=== PATIENT | female | born 1955 | race Caucasian/White ===

== ENCOUNTER → 2016-09-06 | Outpatient (CLI) | payer BC ==
[2014-10-02 21:02] VITALS: BP 134/76
[2016-09-06 09:47] LABS: ALANINE AMINOTRANSFERASE 33 Units/L (12-78); ALKALINE PHOSPHATASE 73 Units/L (46-116); ASPARTATE AMINO TRANSFERASE 25 Units/L (15-37); BLOOD UREA NITROGEN 19 mg/dL (7-18); CALCIUM 9.3 mg/dL (8.5-10.1); CARBON DIOXIDE 33.4 mmol/L (21-32); CHLORIDE 100 mmol/L (98-107); CHOL/HDL RATIO 2.9 (0.0-5.0); CHOLESTEROL 141 mg/dL (0-200); CREATININE 0.79 mg/dL (0.55-1.02); GLUCOSE 95 mg/dL (65-99); HDL CHOLESTEROL 48 mg/dL (40-60); SODIUM 139 mmol/L (136-145); TOTAL PROTEIN 7.8 g/dL (6.4-8.2); TRIGLYCERIDES 74 mg/dL (0-150); TSH (3RD GENERATION) 0.392 uIU/mL (0.358-3.74); eGFR BLACK RACES > 60 (>60); eGFR NON BLACK RACES > 60 (>60)
== END ==
LOC: LAB 09:04
PROVIDERS: ATTEND Internal Medicine Endocrinology, Diabetes & Metabolism
DX: E11.9 Type 2 diabetes mellitus without complications (principal); E78.4 Other hyperlipidemia; I10 Essential (primary) hypertension
CPT/HCPCS: 36415; 80053; 80061; 84443

== ENCOUNTER 2017-04-02 13:30 | Inpatient (IN) | payer BC ==
[2017-04-02 13:34] VITALS: BMI 24.3
--- NOTE | 2017-04-02 13:48 | ED.ABDFE ---
HPI - Time seen Time seen: 16:15 - PCP Primary Care Physician: HOLLY - HPI Comment HPI Comment: PAIN STARTED LAST NIGHT. GETTING WORSE. WITH NAUSEA AND VOMITING. SIMILAR EPISODE ONE WEEK AGO AND RESOLVE SPONTANOUSLY. NO FEVER. - Complaint Chief Complaint Doctors Comments: LUQ ABDOMINAL PAIN Chief Complaint:: PT STATES SHE HAS HAD PAIN SINCE LAST NIGHT IN HER UPPER LEFT QUADRANT. - Nurses notes reviewed Nurses Notes Review: Yes - Source History Provided: Patient - Mode of arrival Mode of Arrival: Ambulatory - Timing Onset of Chief Complaint: 04/01/17 Came on: Suddenly - Duration Duration: Intermittent Duration: Days - Location Location: LUQ - Severity Severity: Moderate - Quality Quality: Cramping, Sharp - Context Onset: Suddenly History of: None - Modifying Worsening Factors: Nothing Improving Factors: Nothing - Associated signs and symptoms Associated Signs and Symptoms: Nausea, Vomiting PMH - PMH Past Medical History: Yes Past Medical History: [place], Coronary Artery Disease, Hypertension, Dyslipidemia, Diabetes, Anxiety Past Surgical History: Yes Surgical History: Ortho Surgery, Weight Loss Surgery Past Surgical History Comment: BACK SURGERY - Family History History of Family Medical Conditions: Yes Family Medical History: Diabetes Mellitus, Heart Failure - Social History Alcohol Use: None Do you use any recreational Drugs:: No Lives With: Spouse Lives Where: Home - infectious screening In the last 2 months have you had wt loss of >10#?: NO Have you had fever, night sweats or hemotysis?: No Have you traveled outside the country in the last 6 months?: No Isolation: Standard ROS - Review of Systems Constitutional: No Symptoms Reported Eyes: No Symptoms Reported ENTM: No Symptoms Reported Respiratoy: No Symptoms Reported Cardiovascular: No Symptoms Reported Gastrointestinal/Abdominal: Abdominal Pain, Nausea, Vomiting Genitourinary: No Symptoms Reported Neurological: No Symptoms Reported Musculoskeletal: No Symptoms Reported Integumentary: No Symptoms Reported Hematologic/Lymphatic: No Symptoms Reported Endocrine: No Symptoms Reported All Other Systems: Reviewed and Negative PE - Vital Signs Vitals: Temperature 98.8 F Pulse Rate 102 Respiratory Rate 20 Blood Pressure [Right Arm] 134/76 Blood Pressure 141/73 O2 Sat by Pulse Oximetry 99 - General Limitations: No Limitations General Appearance: Alert - Head Head Exam: Normal Inspection - Eyes Eye exam: Normal Appearance - ENT ENT Exam: Normal External Ear Exam - Neck Neck Exam: Trachea Midline - Chest Chest Inspection: Symmetric Chest Wall Rise - Respiratory Respiratory Exam: Normal Lung Sounds Bilat Respiratory Exam: Bilateral Clear to Auscultation - Cardiovascular Cardiovascular Exam: Regular Rate, Normal Rhythm, Normal Heart Sounds - Abdominal Exam Abdominal Exam: Normal Bowel Sounds, Soft, Tenderness Abdominal Tenderness: LUQ, Epigastrium - Rectal Rectal Exam: Deferred - Back Back Exam: (L) CVA Tenderness - Extremeties Extremities Exam: Normal Inspection - External Exam: Female: Deferred : Speculum Exam (Female): Deferred : Bimanual Exam (female): Deferred - Neurologic Neurological Exam: Alert, Oriented X3 - Psychiatric Psychiatric Exam: Normal Affect, Normal Mood - Skin Skin Exam: Normal Color MDM - Differential Diagnosis Differential Diagnosis- Considerations may include:: Cholcystitis, Cholelethiasis, Diverticular disease, Gastritus/PUD, Urinary tract infection, Urolithiasis Course - Treatment Treatment: SEE ORDERS. - Consultation Consultation Comments: DISCUSS PATIENT WITH DR. BARRERA. ACCOUNT SUPPORT ANALYST TO ADMIT. DR. SILVERMAN, SURGEON CONSULTED. IN ED TO SEE PATIENT. - Education/Counseling Education/Counseling: Patient, Education Educated On: Diagnosis ROR - Labs Reviewed Laboratory Results Reviewed?: Yes Result Diagrams: 04/03/17 04:05 04/03/17 04:05 Laboratory: WBC 10.9 X10^3/uL (3.6-10.0) H 04/02/17 14:30 RBC 4.65 X10^6/uL (3.5-5.4) 04/02/17 14:30 Hgb 14.1 g/dL (12.0-16.0) 04/02/17 14:30 Hct 40.7 % (36.0-47.0) 04/02/17 14:30 MCV 87.5 fL (80.0-100.0) 04/02/17 14:30 MCH 30.3 pg (27.0-34.0) 04/02/17 14:30 MCHC 34.6 g/dL (33.0-35.0) 04/02/17 14:30 RDW 14.0 % (11.6-16.5) 04/02/17 14:30 Plt Count 307 X10^3/uL (150.0-450.0) 04/02/17 14:30 MPV 8.2 fL (7.4-11.0) 04/02/17 14:30 Neut % 66.0 % (42.0-75.0) 04/02/17 14:30 Lymph % 25.0 % (21.0-51.0) 04/02/17 14:30 [place] % 8.4 % (0.0-13.0) 04/02/17 14:30 Eos % 0.4 % (0.9-2.9) L 04/02/17 14:30 Baso % 0.2 % (0.2-1.0) 04/02/17 14:30 Neut # 7.2 x10^3/uL (2.2-4.8) H 04/02/17 14:30 Lymph # 2.7 X10^3/uL (1.3-2.9) 04/02/17 14:30 [place] # 0.9 x10^3/uL (0.3-0.8) H 04/02/17 14:30 Eos # 0.0 x10^3/uL (0.0-0.2) 04/02/17 14:30 Baso # 0.0 X10^3/uL (0.0-0.1) 04/02/17 14:30 Absolute Nucleated RBC 0.0 /100WBC 04/02/17 14:30 Sodium 140 mmol/L (136-145) 04/02/17 14:30 Corrected Sodium TNP 04/02/17 14:30 Potassium 4.1 mmol/L (3.5-5.1) 04/02/17 14:30 Chloride 99 mmol/L (98-107) 04/02/17 14:30 Carbon Dioxide 33.9 mmol/L (21-32) H 04/02/17 14:30 BUN 18 mg/dL (7-18) 04/02/17 14:30 Creatinine 0.97 mg/dL (0.55-1.02) 04/02/17 14:30 Est GFR (MDRD) Af Amer > 60 (>60) 04/02/17 14:30 Est GFR (MDRD) Non-Af > 60 (>60) 04/02/17 14:30 Glucose 86 mg/dL (65-99) 04/02/17 14:30 Calcium 9.8 mg/dL (8.5-10.1) 04/02/17 14:30 Corrected Calcium TNP 04/02/17 14:30 Total Bilirubin 0.30 mg/dL (0.2-1.0) 04/02/17 14:30 AST 22 Units/L (15-37) 04/02/17 14:30 ALT 30 Units/L (12-78) 04/02/17 14:30 Alkaline Phosphatase 80 Units/L (46-116) 04/02/17 14:30 Total Protein 7.7 g/dL (6.4-8.2) 04/02/17 14:30 Albumin 4.0 g/dL (3.4-5.0) 04/02/17 14:30 Globulin 3.7 g/dL (2.5-4.5) 04/02/17 14:30 Albumin/Globulin Ratio 1.1 Ratio (1.1-2.1) 04/02/17 14:30 Amylase 50 Units/L (25-115) 04/02/17 14:30 Lipase 403 Units/L (73-393) H 04/02/17 14:30 - XRAY XRAY Findings: REPORT DISCUSS WITH PATIENT. - Diagnosis Discharge Problem: Cholecystitis, Hematuria Abdominal pain Qualifiers: Abdominal location: left upper quadrant Qualified Code(s): R10.12 - Left upper quadrant pain Acute alcoholic pancreatitis Qualifiers: Acute pancreatitis complication: unspecified Qualified Code(s): K85.20 - Alcohol induced acute pancreatitis without necrosis or infection - Discharge Plan Disposition: ADMITTED INPATIENT Condition: Stable - Follow ups/Referrals - Instructions
[2017-04-02] MEDS ORDERED: TORADOL 30 MG VIAL IVP ONE (14:10)
[2017-04-02] MEDS ORDERED: NS 1000 ML 1,000 ML IV ONE (14:10)
[2017-04-02] MEDS ORDERED: ZOFRAN INJ 4 MG VIAL IVP ONE (14:10)
[2017-04-02] MEDS ORDERED: ZOFRAN INJ 4 MG VIAL ONE (14:14)
[2017-04-02] MEDS ORDERED: NS 1000 ML 1,000 ML ONE (14:14)
[2017-04-02] MEDS ORDERED: TORADOL 30 MG VIAL ONE (14:15)
[2017-04-02 14:41] LABS: BASOPHILS % (AUTO) 0.2 % (0.2-1.0); EOSINOPHILS % (AUTO) 0.4 % (0.9-2.9); HEMATOCRIT 40.7 % (36.0-47.0); HEMOGLOBIN 14.1 g/dL (12.0-16.0); LYMPHOCYTES # (AUTO) 2.7 X10^3/uL (1.3-2.9); MEAN CORPUSCULAR HEMOGLOBIN 30.3 pg (27.0-34.0); MEAN CORPUSCULAR HGB CONC 34.6 g/dL (33.0-35.0); MEAN CORPUSCULAR VOLUME 87.5 fL (80.0-100.0); MEAN PLATELET VOLUME 8.2 fL (7.4-11.0); MONOCYTES # (AUTO) 0.9 x10^3/uL (0.3-0.8); MONOCYTES % (AUTO) 8.4 % (0.0-13.0); NEUTROPHILS # (AUTO) 7.2 x10^3/uL (2.2-4.8); PLATELET COUNT 307 X10^3/uL (150.0-450.0); RED BLOOD COUNT 4.65 X10^6/uL (3.5-5.4); WHITE BLOOD COUNT 10.9 X10^3/uL (3.6-10.0)
--- NOTE | 2017-04-02 14:41 | CT ---
HISTORY: Left upper quadrant abdominal pain Study: CT abdomen pelvis without contrast Comparison: None Technique: Axial noncontrast images with coronal and sagittal reformats. Dose reduction procedures we re used with mA/kv adjusted for body size. The examination is limited due to the lack of intravenous and oral contrast. Findings: The lung bases are clear. The liver, spleen, adrenal glands, and pancreas are within normal limits to the limitations of an unenhanced examination. Cholelithiasis is present. There are no findings sugge stive of cholecystitis. The kidneys are unobstructed. There is a 2 mm nonobstructing left upper pole renal calculus present. Incidental note is made of a properly oriented gastric lap band. No intraperi toneal or retroperitoneal lymphadenopathy of significance is identified. There are no findings sugges tive of diverticulitis or colitis. There is no evidence for small or large bowel obstruction. Examina tion of the pelvis demonstrated no evidence for pelvic masses, pelvic fluid, or pelvic lymphadenopath y. There is a moderately large amount of stool throughout the colon suggestive of constipation. No bl adder abnormality is identified. No lytic or blastic skeletal lesions are identified. IMPRESSION: Cholelithiasis without definite evidence for cholecystitis 2 mm nonobstructing left upper pole renal calculus No definite acute intra-abdominal or intrapelvic abnormality to the limitations of an examination per formed without intravenous and without oral contrast. Reported By:
[2017-04-02 14:51] LABS: ALANINE AMINOTRANSFERASE 30 Units/L (12-78); ALKALINE PHOSPHATASE 80 Units/L (46-116); AMYLASE 50 Units/L (25-115); ASPARTATE AMINO TRANSFERASE 22 Units/L (15-37); BLOOD UREA NITROGEN 18 mg/dL (7-18); CALCIUM 9.8 mg/dL (8.5-10.1); CARBON DIOXIDE 33.9 mmol/L (21-32); CHLORIDE 99 mmol/L (98-107); CREATININE 0.97 mg/dL (0.55-1.02); LIPASE 403 Units/L (73-393); SODIUM 140 mmol/L (136-145); TOTAL PROTEIN 7.7 g/dL (6.4-8.2); eGFR BLACK RACES > 60 (>60); eGFR NON BLACK RACES > 60 (>60)
[2017-04-02 15:22] LABS: BILIRUBIN,URINE NEGATIVE (NEGATIVE); BLOOD/HEMOGLOBIN,URINE NEGATIVE (NEGATIVE); GLUCOSE, URINE 4+ (NEGATIVE); KETONES,URINE NEGATIVE (NEGATIVE); LEUKOCYTE ESTERASE ,URINE 1+ (NEGATIVE); NITRITES,URINE NEGATIVE (NEGATIVE); PROTEIN,URINE NEGATIVE (NEGATIVE); UROBILINOGEN,URINE NORMAL (NORMAL)
[2017-04-02 15:29] LABS: APPEARANCE,URINE CLEAR (CLEAR); BACTERIA,URINE TRACE /HPF (NEGATIVE); COLOR,URINE YELLOW (YELLOW); RBC,URINE 0-2 /HPF (NEGATIVE); SQUAMOUS EPITHELIAL CELL,UR RARE /HPF (NEGATIVE)
[2017-04-02] MEDS: NS 1000 ML 1,000 ML IV SCH (16:54)
[2017-04-02] MEDS ORDERED: DULCOLAX SUPPOSITORY 10 MG RECTAL SCH (17:21)
[2017-04-02] MEDS: MILK OF MAGNESIA PO SCH (20:07)
[2017-04-02] MEDS: COLACE CAP 100 MG PO SCH (20:08)
[2017-04-02] MEDS: MIRALAX POWDER (1 DOSE 17GM) PO SCH (20:08)
[2017-04-02] MEDS: LOPRESSOR TAB 25 MG PO SCH (23:32)
[2017-04-03] MEDS: DEMEROL INJ IVP PRN ×2 (00:14→06:40)
[2017-04-03] MEDS: ZOFRAN INJ 4 MG VIAL IVP PRN ×3 (00:14→07:57)
[2017-04-03] MEDS: NS 1000 ML 1,000 ML IV SCH ×4 (02:40→20:52)
[2017-04-03 05:25] LABS: BASOPHILS % (AUTO) 0.5 % (0.2-1.0); EOSINOPHILS # (AUTO) 0.1 x10^3/uL (0.0-0.2); HEMATOCRIT 34.6 % (36.0-47.0); HEMOGLOBIN 11.7 g/dL (12.0-16.0); LYMPHOCYTES # (AUTO) 1.7 X10^3/uL (1.3-2.9); LYMPHOCYTES % (AUTO) 28.7 % (21.0-51.0); MEAN CORPUSCULAR HEMOGLOBIN 30.4 pg (27.0-34.0); MEAN CORPUSCULAR HGB CONC 33.9 g/dL (33.0-35.0); MEAN CORPUSCULAR VOLUME 89.5 fL (80.0-100.0); MEAN PLATELET VOLUME 8.6 fL (7.4-11.0); MONOCYTES # (AUTO) 0.6 x10^3/uL (0.3-0.8); MONOCYTES % (AUTO) 10.7 % (0.0-13.0); NEUTROPHILS # (AUTO) 3.4 x10^3/uL (2.2-4.8); NEUTROPHILS % (AUTO) 59.1 % (42.0-75.0); PLATELET COUNT 211 X10^3/uL (150.0-450.0); RED BLOOD COUNT 3.86 X10^6/uL (3.5-5.4); RED CELL DISTRIBUTION WIDTH 14.2 % (11.6-16.5); WHITE BLOOD COUNT 5.8 X10^3/uL (3.6-10.0)
[2017-04-03 05:43] LABS: ALANINE AMINOTRANSFERASE 19 Units/L (12-78); ALBUMIN 2.7 g/dL (3.4-5.0); ALKALINE PHOSPHATASE 56 Units/L (46-116); AMYLASE 33 Units/L (25-115); ASPARTATE AMINO TRANSFERASE 16 Units/L (15-37); BLOOD UREA NITROGEN 18 mg/dL (7-18); CALCIUM 8.1 mg/dL (8.5-10.1); CARBON DIOXIDE 28.7 mmol/L (21-32); CHLORIDE 107 mmol/L (98-107); COR CA(FOR HYPOALB) 9.1 mg/dL (8.5-10.1); CREATININE 0.59 mg/dL (0.55-1.02); LIPASE 189 Units/L (73-393); SODIUM 141 mmol/L (136-145); TOTAL PROTEIN 5.4 g/dL (6.4-8.2); eGFR BLACK RACES > 60 (>60); eGFR NON BLACK RACES > 60 (>60)
[2017-04-03] MEDS: LOPRESSOR TAB 25 MG PO SCH ×2 (08:27→22:30)
[2017-04-03] MEDS: XANAX PO SCH (08:28)
[2017-04-03] MEDS: MILK OF MAGNESIA PO SCH ×2 (08:28→20:11)
--- NOTE | 2017-04-03 09:34 | PCM.PROG ---
Progress Note - Progress Note for Day of Date: 04/03/17 - Subjective Subjective: still having significant LUQ and shoulder pain requiring medications. no nausea or vomiting today . no fever. - Past Medical Family Social History Past Med/Fam/Surg Hx: No changes since H&P (h/o DC in the past.) Allergies: Allergies tenecteplase Allergy (Verified 04/02/17 15:58) - Vital Signs and I&O's Vital Signs: Temperature 97.7 F Pulse Rate [Left Radial] 63 Pulse Rate 102 Respiratory Rate 18 Blood Pressure [Right Arm] 96/51 Blood Pressure 141/73 O2 Sat by Pulse Oximetry 95 Intake and Output: Intake & Output 03/31/17 04/01/17 04/02/17 04/03/17 11:59 11:59 11:59 11:59 Intake Total 2225 Balance 2225 - Physical Exam Oriented: Normal Eyes: Normal Nose: Normal Respiratory: Normal Cardiovascular: Normal Auscultation: Bowel Sounds: Decreased Tenderness: LUQ (moderate to severe tenderness ), Epigastric Musculoskeletal: Normal Speech Pattern: Clear, Appropriate - Laboratory and Diagnostics Result Diagrams: 04/03/17 04:05 04/03/17 04:05 Labs: Laboratory WBC 5.8 X10^3/uL (3.6-10.0) 04/03/17 04:05 RBC 3.86 X10^6/uL (3.5-5.4) 04/03/17 04:05 Hgb 11.7 g/dL (12.0-16.0) L D 04/03/17 04:05 Hct 34.6 % (36.0-47.0) L 04/03/17 04:05 MCV 89.5 fL (80.0-100.0) 04/03/17 04:05 MCH 30.4 pg (27.0-34.0) 04/03/17 04:05 MCHC 33.9 g/dL (33.0-35.0) 04/03/17 04:05 RDW 14.2 % (11.6-16.5) 04/03/17 04:05 Plt Count 211 X10^3/uL (150.0-450.0) 04/03/17 04:05 MPV 8.6 fL (7.4-11.0) 04/03/17 04:05 Neut % 59.1 % (42.0-75.0) 04/03/17 04:05 Lymph % 28.7 % (21.0-51.0) 04/03/17 04:05 [place] % 10.7 % (0.0-13.0) 04/03/17 04:05 Eos % 1.0 % (0.9-2.9) 04/03/17 04:05 Baso % 0.5 % (0.2-1.0) 04/03/17 04:05 Neut # 3.4 x10^3/uL (2.2-4.8) 04/03/17 04:05 Lymph # 1.7 X10^3/uL (1.3-2.9) 04/03/17 04:05 [place] # 0.6 x10^3/uL (0.3-0.8) 04/03/17 04:05 Eos # 0.1 x10^3/uL (0.0-0.2) 04/03/17 04:05 Baso # 0.0 X10^3/uL (0.0-0.1) 04/03/17 04:05 Absolute Nucleated RBC 0.1 /100WBC 04/03/17 04:05 Sodium 141 mmol/L (136-145) 04/03/17 04:05 Corrected Sodium TNP 04/03/17 04:05 Potassium 3.8 mmol/L (3.5-5.1) 04/03/17 04:05 Chloride 107 mmol/L (98-107) 04/03/17 04:05 Carbon Dioxide 28.7 mmol/L (21-32) 04/03/17 04:05 BUN 18 mg/dL (7-18) 04/03/17 04:05 Creatinine 0.59 mg/dL (0.55-1.02) 04/03/17 04:05 Est GFR (MDRD) Af Amer > 60 (>60) 04/03/17 04:05 Est GFR (MDRD) Non-Af > 60 (>60) 04/03/17 04:05 Glucose 83 mg/dL (65-99) 04/03/17 04:05 POC Glucose (mg/dL) 88 mg/dL (65-99) 04/03/17 04:14 Calcium 8.1 mg/dL (8.5-10.1) L 04/03/17 04:05 Corrected Calcium 9.1 mg/dL (8.5-10.1) 04/03/17 04:05 Total Bilirubin 0.40 mg/dL (0.2-1.0) 04/03/17 04:05 AST 16 Units/L (15-37) 04/03/17 04:05 ALT 19 Units/L (12-78) 04/03/17 04:05 Alkaline Phosphatase 56 Units/L (46-116) 04/03/17 04:05 Total Protein 5.4 g/dL (6.4-8.2) L 04/03/17 04:05 Albumin 2.7 g/dL (3.4-5.0) L 04/03/17 04:05 Globulin 2.7 g/dL (2.5-4.5) 04/03/17 04:05 Albumin/Globulin Ratio 1.0 Ratio (1.1-2.1) L 04/03/17 04:05 Amylase 33 Units/L (25-115) 04/03/17 04:05 Lipase 189 Units/L (73-393) 04/03/17 04:05 Specimen Type Clean catch urine 04/02/17 15:16 Urine Color Yellow (YELLOW) 04/02/17 15:16 Urine Appearance Clear (CLEAR) 04/02/17 15:16 Urine pH 8.0 (5.0 - 8.0) 04/02/17 15:16 Ur Specific [place] 1.010 (1.000-1.030) 04/02/17 15:16 Urine Protein Negative (NEGATIVE) 04/02/17 15:16 Urine Glucose (UA) 4+ (NEGATIVE) 04/02/17 15:16 Urine Ketones Negative (NEGATIVE) 04/02/17 15:16 Urine Occult Blood Negative (NEGATIVE) 04/02/17 15:16 Urine Nitrite Negative (NEGATIVE) 04/02/17 15:16 Urine Bilirubin Negative (NEGATIVE) 04/02/17 15:16 Urine Urobilinogen Normal (NORMAL) 04/02/17 15:16 Ur Leukocyte Esterase 1+ (NEGATIVE) 04/02/17 15:16 Urine RBC 0-2 /HPF (NEGATIVE) 04/02/17 15:16 Urine WBC 0-2 /HPF (NEGATIVE) 04/02/17 15:16 Ur Squamous Epith Cells Rare /HPF (NEGATIVE) 04/02/17 15:16 Urine Bacteria Trace /HPF (NEGATIVE) 04/02/17 15:16 Ur Culture Indicated? No/not indicated 04/02/17 15:16 - Plan (1) Acute gallstone pancreatitis Status: Acute Plan: same medical treatment and W/U. Lap Jessica when Pt is medically cleared . same IVF . IV protonix , Diabetic control . (2) Coronary artery disease Status: Chronic Plan: same diabetic control and medical evaluation. (3) Diabetes Status: Chronic
[2017-04-03 10:07] LABS: CHOL/HDL RATIO 2.8 (0.0-5.0)
[2017-04-03] MEDS ORDERED: HumuLIN R SC PRN (10:24)
--- NOTE | 2017-04-03 12:37 | US ---
History: Left upper quadrant abdominal pain Study: Ultrasound of the right upper quadrant of the abdomen Comparison: None Findings: The liver is normal in size without mass. The right kidney measures 9 x 5 x 5 cm without mass or hydronephrosis. The pancreas is hyperechoic without mass or enlargement. There is no free fluid. There is no aortic aneurysm. The gallbladder is normal in size without wall thickening. There are several dependent gallstones wit hout significant acoustic shadowing. The common hepatic duct measures 4.3 mm diameter. Impression: Cholelithiasis Reported By:
[2017-04-03] MEDS: PROTONIX INJ 40 MG VIAL IVP SCH (17:23)
[2017-04-03] MEDS ORDERED: GLUCOPHAGE ONE (19:45)
[2017-04-03] MEDS: ARTIFICIAL TEARS DROPS AFFEYE SCH (20:11)
[2017-04-03] MEDS: COLACE CAP 100 MG PO SCH (20:11)
[2017-04-03] MEDS: GLUCOPHAGE PO SCH (20:11)
[2017-04-03] MEDS: MIRALAX POWDER (1 DOSE 17GM) PO SCH (20:11)
[2017-04-03] MEDS: ASPIRIN EC 81 MG PO SCH (22:32)
[2017-04-03] MEDS: LIPITOR TAB 40 MG PO SCH (22:32)
[2017-04-04 05:40] LABS: BLOOD UREA NITROGEN 14 mg/dL (7-18); eGFR BLACK RACES > 60 (>60); eGFR NON BLACK RACES > 60 (>60)
[2017-04-04 05:59] LABS: BASOPHILS % (AUTO) 0.5 % (0.2-1.0); EOSINOPHILS # (AUTO) 0.1 x10^3/uL (0.0-0.2); EOSINOPHILS % (AUTO) 2.1 % (0.9-2.9); HEMOGLOBIN 11.9 g/dL (12.0-16.0); LYMPHOCYTES # (AUTO) 1.9 X10^3/uL (1.3-2.9); LYMPHOCYTES % (AUTO) 33.5 % (21.0-51.0); MEAN CORPUSCULAR HGB CONC 33.9 g/dL (33.0-35.0); MEAN CORPUSCULAR VOLUME 88.5 fL (80.0-100.0); MEAN PLATELET VOLUME 8.5 fL (7.4-11.0); MONOCYTES # (AUTO) 0.5 x10^3/uL (0.3-0.8); MONOCYTES % (AUTO) 9.3 % (0.0-13.0); NEUTROPHILS # (AUTO) 3.1 x10^3/uL (2.2-4.8); NEUTROPHILS % (AUTO) 54.6 % (42.0-75.0); PLATELET COUNT 236 X10^3/uL (150.0-450.0); RED BLOOD COUNT 3.95 X10^6/uL (3.5-5.4); WHITE BLOOD COUNT 5.6 X10^3/uL (3.6-10.0)
[2017-04-04 06:14] LABS: ALANINE AMINOTRANSFERASE 21 Units/L (12-78); ALBUMIN 2.8 g/dL (3.4-5.0); ALKALINE PHOSPHATASE 58 Units/L (46-116); ASPARTATE AMINO TRANSFERASE 19 Units/L (15-37); CALCIUM 8.2 mg/dL (8.5-10.1); CARBON DIOXIDE 27.9 mmol/L (21-32); CHLORIDE 108 mmol/L (98-107); COR CA(FOR HYPOALB) 9.2 mg/dL (8.5-10.1); CREATININE 0.76 mg/dL (0.55-1.02); SODIUM 142 mmol/L (136-145); TOTAL PROTEIN 5.8 g/dL (6.4-8.2)
[2017-04-04] MEDS ORDERED: TYLENOL 325 MG TAB PO ONE (06:45)
[2017-04-04] MEDS ORDERED: TYLENOL 325 MG TAB PO PRN (06:59)
[2017-04-04] MEDS: NS 1000 ML 1,000 ML IV SCH (07:00)
[2017-04-04] MEDS ORDERED: GLUCOPHAGE ONE (07:41)
[2017-04-04] MEDS ORDERED: SNACK - Diabetic Appropriate PO SCH (07:45)
[2017-04-04] MEDS: LOPRESSOR TAB 25 MG PO SCH (08:29)
[2017-04-04] MEDS: ARTIFICIAL TEARS DROPS AFFEYE SCH (08:29)
[2017-04-04] MEDS: PROTONIX INJ 40 MG VIAL IVP SCH (08:29)
[2017-04-04] MEDS: ASPIRIN EC 81 MG PO SCH (08:29)
[2017-04-04] MEDS: GLUCOPHAGE PO SCH (08:29)
[2017-04-04] MEDS: MILK OF MAGNESIA PO SCH (08:29)
[2017-04-04] MEDS: LIPITOR TAB 40 MG PO SCH (08:29)
[2017-04-04] MEDS: XANAX PO SCH (08:30)
[2017-04-04] MEDS ORDERED: PATIENT'S HOME MEDICATION PO SCH (09:00)
[2017-04-04 11:15] VITALS: BP 135/66
== END 2017-04-04 11:35 | disposition home or self-care (01) | DRG 440 ==
LOC: ER 13:37 → OBSVTOIN 15:28 → MED/SURG 15:28
PROVIDERS: ADMIT Internal Medicine; ATTEND Internal Medicine
DX: K85.20 Alcohol induced acute pancreatitis without necrosis or infection (principal); K80.80 Other cholelithiasis without obstruction; R10.12 Left upper quadrant pain; I25.10 Atherosclerotic heart disease of native coronary artery without angina pectoris; I10 Essential (primary) hypertension; E78.2 Mixed hyperlipidemia; E11.65 Type 2 diabetes mellitus with hyperglycemia; F41.8 Other specified anxiety disorders; Z98.84 Bariatric surgery status; R74.0 Nonspecific elevation of levels of transaminase and lactic acid dehydrogenase [LDH]
CPT/HCPCS: 36415; 74176; 76705; 80053; 80061; 81001; 82150; 83690; 85025; 96365; 96374; 96375; 99284; A4222; C9113; J1885; J2175; J2405

== ENCOUNTER 2017-05-17 07:49 | Day surgery (SDC) | payer BC ==
[2017-05-17] MEDS ORDERED: D5 LR 1000 ML 1,000 ML IV ONE (07:56)
[2017-05-17] MEDS ORDERED: DIPRIVAN VIAL 20 ML ONE (09:33)
[2017-05-17 10:10] VITALS: BP 102/77
== END 2017-05-17 10:10 | disposition home or self-care (01) ==
LOC: SURG1 07:49
PROVIDERS: ATTEND Internal Medicine Gastroenterology
PROC: 0DB68ZX Excision of Stomach, Via Natural or Artificial Opening Endoscopic, Diagnostic (ICD-10-PCS; principal; 2017-05-17 12:15)
PROC: 0DB88ZX Excision of Small Intestine, Via Natural or Artificial Opening Endoscopic, Diagnostic (ICD-10-PCS; principal; 2017-05-17 12:15)
PROC: 0DJ08ZZ Inspection of Upper Intestinal Tract, Via Natural or Artificial Opening Endoscopic (ICD-10-PCS; principal; 2017-05-17 12:15)
DX: R10.13 Epigastric pain (principal); R10.12 Left upper quadrant pain; K21.9 Gastro-esophageal reflux disease without esophagitis; K20.8 Other esophagitis; K29.60 Other gastritis without bleeding
CPT/HCPCS: A4217; J3490; J7120